=== PATIENT | female | born 1960 | race Caucasian/White ===

== ENCOUNTER → 2019-04-10 | Outpatient (CLI) | payer MEDICARE, OTHER ==
--- NOTE | 2019-04-10 12:43 | RAD ---
EXAM: Lumbar spine, 3 views; cervical spine, 3 views. HISTORY: Pain. COMPARISON: None. FINDINGS: Lumbar spine: 3 views of the lumbar spine are obtained. There is no listhesis. The vertebral bodies are normal in height and the disc spaces are preserved. Cervical spine: 3 views of the cervical spine are obtained. There is noninstrumented fusion with bony bridging at C5-C6. There is degenerative endplate remodeling with disc space narrowing and osteophytosis at C3-C4 and C4-C5. There is no significant listhesis. No fracture is seen. IMPRESSION: 1. Noninstrumented fusion at C5-C6 and degenerative change at C3-C4 and C4-C5. 2. No acute osseous finding. Electronically signed by: Lilian Alegria MD (04/10/2019 12:40 PM) [facility]
--- NOTE | 2019-04-10 14:31 | RAD ---
EXAM: Abdomen and pelvis CT without intravenous contrast. HISTORY: Right lower quadrant pain. TECHNIQUE: Computed tomographic images of the abdomen and pelvis were obtained without contrast. Multiplanar reformatting was performed. *One or more of the following individualized dose reduction techniques were utilized for this examination: 1. Automated exposure control. 2. Adjustment of the mA and/or kV according to patient size. 3. Use of iterative reconstruction technique. COMPARISON: 09/20/2014. FINDINGS: Evaluation of the lower thorax demonstrates emphysema. No infiltrate or pleural effusion is seen. The heart is normal in size. No hepatic lesion is seen on this noncontrast exam. The gallbladder, pancreas, spleen and adrenal glands are also unremarkable on noncontrast images. There are multiple hyperdense lesions throughout the right kidney, the largest of which measures 1.3 cm within the anterior mid zone. These are superimposed on a few small hypodense lesions which are likely cysts. There is no evidence of a renal stone or hydronephrosis. There is no evidence of appendicitis or bowel obstruction. There is moderate colonic stool. Evaluation for bowel wall thickening is limited in the absence of contrast. No convincing colitis or enteritis is seen. The uterus is surgically absent. The urinary bladder is unremarkable. There is no lymphadenopathy. There is no suspicious osseous lesion. IMPRESSION: 1. No convincing acute abdominal or pelvic finding. 2. Multilevel hypodense lesions throughout the right kidney, possibly due to hemorrhagic cysts. These are superimposed on suspected simple cyst. These may be too small to characterize sonographically. A renal protocol CT or MRI can be performed to confirm benignity. 3. Pulmonary emphysema. Electronically signed by: Lilian Alegria MD (04/10/2019 2:28 PM) [place] [id number]
== END | disposition home or self-care (01) ==
LOC: CT 11:20
PROVIDERS: ATTEND Family Medicine
DX: M48.02 Spinal stenosis, cervical region (principal); M47.812 Spondylosis without myelopathy or radiculopathy, cervical region; M43.22 Fusion of spine, cervical region; N28.89 Other specified disorders of kidney and ureter; R10.31 Right lower quadrant pain; J43.9 Emphysema, unspecified; M54.5 Low back pain; Z90.710 Acquired absence of both cervix and uterus
CPT/HCPCS: 72040; 72100; 74176